=== PATIENT | female | born 1950 | race Caucasian/White ===

== ENCOUNTER 2018-07-17 15:30 | Inpatient (IN) | payer OTHER ==
[2018-07-17 17:11] LABS: Urine Appearance CLEAR; Urine Bilirubin NEGATIVE (NEG); Urine Blood NEGATIVE (NEG); Urine Color YELLOW; Urine Glucose NEGATIVE (NEG); Urine Protein NEGATIVE (NEG); Urine Urobilinogen 0.2 mg/dL (0.2-1.0)
[2018-07-17 17:24] LABS: Urine Microscopic Reflex ORDER UMIC
[2018-07-17 17:39] VITALS: BMI 45.6
[2018-07-17 17:51] LABS: Absolute Lymphocytes (CBC) 1.1 K/uL (0.7-4.9); Absolute Monocytes 0.9 K/uL (0.1-1.3); Absolute Neutrophil 7.9 K/uL (1.8-8.0); Basophils % 0.3 % (0-1.3); Eosinophils % 1.2 % (0-4.4); Hematocrit 39.4 % (36.0-45.0); MCH 30.6 pg (27.0-35.0); MPV 8.7 fL (7.6-11.3); Monocytes % 8.5 % (3.3-12.3); RBC Red Blood Cell Count 4.37 M/uL (3.86-4.86)
[2018-07-17 18:03] LABS: Albumin 3.5 g/dL (3.4-5.0); Bilirubin Total 0.4 mg/dL (0.2-1.0); Potassium 3.8 mmol/L (3.5-5.1); Protein, Total 7.3 g/dL (6.4-8.2)
[2018-07-17 19:18] LABS: Urine Bacteria 20-50 /HPF (<20); Urine Culture Reflex Order NOT NEEDED; Urine RBC <5 /HPF (NONE SEEN)
[2018-07-17] MEDS ORDERED: VANCOMYCIN/NS 1 gm 1 GM/250 ML BAG IV SCH (21:00)
[2018-07-18] MEDS: VANCOMYCIN 1.75 GM in NA CHLORIDE 0.9% 500 ML IVPB SCH (10:02)
[2018-07-18] MEDS: ENOXAPARIN 30 MG/0.3 ML SQ SCH (17:05)
[2018-07-18] MEDS: ATORVASTATIN 10 MG TAB PO SCH (21:00)
[2018-07-18 22:22] VITALS: O2SAT 98
--- NOTE | 2018-07-19 00:24 | HP ---
Date of Admission: 07/17/2018 Chief Complaint: Pain, redness, right leg. History Of Present Illness: A 67-year-old female was taken to urgent care for infection of the leg. She was given doxycycline and Bactrim. However, she returned to office because of her increased meir n and redness. She was found to have cellulitis with early abscess formation and vesiculation. The patient was admitted for IV vancomycin therapy as she was not responding to oral antibiotics. Past Medical History: The patient is known to have history of hypertension. Surgical History: Positive for gallbladder surgery, biopsy of breast, and history of dental surgery. Allergies: FLUCONAZOLE. Home Medicines: Please refer to the chart. Review of Systems: The patient denied any history of chest pain or shortness of breath. Physical Examination: General: Revealed a 67-year-old female in moderate pain. Vital Signs: Afebrile. HEENT: Negative. Neck: Supple. JVD negative. Chest: Clear. Heart: Regular. Abdomen: Pendulous, nontender. Extremities: There is a large area of redness of the right leg with vesicle and purulent drainage. Laboratory Data: CBC, white count normal. Assessment: 1.Cellulitis, not responding to oral doxycycline and Bactrim. 2.Hypertension. 3.History of gallbladder surgery and breast biopsies. Plan: The patient is started on vancomycin. She will be followed on a daily basis and response will be monitored. RAVINDER/NAYELI Voice ID: [id number]
[2018-07-19] MEDS: LOSARTAN POTASSIUM 50 MG TABLET PO SCH (08:22)
[2018-07-19] MEDS: DIPHENHYDRAMINE 25 MG TAB/CAP PO SCH (08:23)
[2018-07-19] MEDS: hydroCHLOROthiazide 25 MG TAB PO SCH (08:23)
[2018-07-19] MEDS: VANCOMYCIN 1.75 GM in NA CHLORIDE 0.9% 500 ML IVPB SCH (08:26)
[2018-07-19] MEDS ORDERED: HOME MED 1 EA UNK (Losartan/Hydrochlorothiazide [Losartan-Hctz 100-25 Mg Tab] 1 TAB) PO SCH (09:00)
[2018-07-19] MEDS: FAMOTIDINE 20 MG TAB PO SCH (09:51)
[2018-07-19] MEDS: ENOXAPARIN 30 MG/0.3 ML SQ SCH (16:29)
[2018-07-19] MEDS: ATORVASTATIN 10 MG TAB PO SCH (21:00)
[2018-07-20] MEDS: DIPHENHYDRAMINE 25 MG TAB/CAP PO SCH (08:34)
[2018-07-20] MEDS: hydroCHLOROthiazide 25 MG TAB PO SCH (08:34)
[2018-07-20] MEDS: LOSARTAN POTASSIUM 50 MG TABLET PO SCH (08:34)
[2018-07-20] MEDS: FAMOTIDINE 20 MG TAB PO SCH (08:35)
[2018-07-20] MEDS: VANCOMYCIN 1.75 GM in NA CHLORIDE 0.9% 500 ML IVPB SCH (08:36)
[2018-07-20 08:39] VITALS: BP 167/76
[2018-07-20 09:30] VITALS: TEMP 96.5
== END 2018-07-20 09:36 | disposition home or self-care (01) | DRG 603 ==
LOC: 2ND 16:09
PROVIDERS: ADMIT Internal Medicine; ATTEND Internal Medicine
DX: L03.115 Cellulitis of right lower limb (principal); L02.415 Cutaneous abscess of right lower limb; I10 Essential (primary) hypertension
CPT/HCPCS: 36415; 80053; 80202; 81003; 81015; 82565; 85025; 87040; 87070; 87077; 87086; 87088; 87186; 87205; J1650; J3370

== ENCOUNTER 2021-06-15 09:15 | Day surgery (SDC) | payer OTHER ==
[2021-06-15] MEDS ORDERED: CELECOXIB 100 MG CAPSULE ONE (10:07)
[2021-06-15] MEDS ORDERED: ACETAMINOPHEN 500 MG TAB ONE (10:07)
[2021-06-15] MEDS ORDERED: Ringers Lactate 1,000 ML IV ONE (10:07)
[2021-06-15] MEDS ORDERED: propofoL 200 MG/20 ML VIAL IV ONE ×2 (10:21→10:26)
[2021-06-15] MEDS ORDERED: dexAMETHasone 4 MG/ML VIAL ONE (10:21)
[2021-06-15] MEDS ORDERED: FENTANYL CITR 100 MCG/2 ML ONE ×2 (10:21→10:26)
[2021-06-15] MEDS ORDERED: ONDANSETRON 4 MG/2 ML VIAL ONE ×2 (10:21→11:22)
[2021-06-15] MEDS ORDERED: KETOROLAC 30 MG/ML INJ ONE (10:21)
[2021-06-15] MEDS ORDERED: MIDAZOLAM HCL 2 MG/2 ML INJ ONE ×2 (10:21→10:26)
[2021-06-15] MEDS ORDERED: LIDOCAINE 1% MPF 30 ML VIAL ONE (10:22)
[2021-06-15] MEDS ORDERED: LIDOCAINE 2% MPF 5 ML VIAL ONE (10:26)
[2021-06-15] MEDS ORDERED: LIDOCAINE 1% W/EPI 1:100,000 MDV 20 ML VIAL ONE (11:00)
[2021-06-15] MEDS ORDERED: ROCURONIUM 50 MG/5 ML VIAL IV ONE (11:22)
[2021-06-15] MEDS ORDERED: dexAMETHasone 10 MG/ML VIAL ONE (11:22)
[2021-06-15] MEDS ORDERED: MEPERIDINE HCL 25 MG/ML SYR IM PRN (11:50)
--- NOTE | 2021-06-15 11:53 | P.BOP ---
Preoperative diagnosis: Pelvic pain, Uterivaginal prolapse, thick endometrium Postoperative diagnosis: same, endometrial polyp Primary procedure: Op hysteroscopy Polypectomy D&C, exam under anesthesia Estimated blood loss: min Specimen: polyp and EMC Findings: polyp and thick endometrial tissue on posterior and fundal wall Anesthesia: General Complications: None Transferred to: Recovery Room Condition: Good
[2021-06-15 12:40] VITALS: BP 155/68; TEMP 96.8; O2SAT 96
--- NOTE | 2021-06-16 08:22 | OP ---
Date of Procedure: 06/15/2021 Surgeon: Snow Tellez MD Preoperative Diagnoses: Pelvic pain, uterovaginal prolapse, and thick endometrium. Postoperative Diagnoses: Pelvic pain, uterovaginal prolapse, thick endometrium, and endometrial poly p. Procedures Performed: Operative hysteroscopy, polypectomy, dilation and curettage, and exam under an esthesia (was difficult to examine her prolapse and her vaginal area preoperatively). Blood Loss: Minimal. Specimens: Polyp and endometrial curettings. Complications: No complications. Drains: No drains. Anesthesia: General with LMA. Specimens: Endometrial polyp and curettings. Findings: The polyp was present in the posterior wall. There was thickened endometrial tissue on th e posterior fundal wall. All this was incised with scissors and retrieved with the help of polyp for ceps. Her POP-Q was -1, 0, -1, 5, moderate, 8, 0, 0, and -4. Rectovaginal exam; there was significa nt and distal rectovaginal septum detachment from the perineal body. The perineal body was weak alee ng the genital hiatus much larger. Indications: The patient is a 70-year-old female, who presented with pelvic pain and prolapse. On t ransvaginal ultrasound, thickened endometrium was noted that was heterogeneous, suspicious for a poly p or mass. It was also difficult to evaluate her pelvic organ prolapse in the office as it failed to demonstrate her bulge that she was reporting, so the exam under anesthesia would be the most appropr iate for us to evaluate for the treatment for prolapse for this patient. She was consented for an ex am under anesthesia, hysteroscopy, polypectomy, D and C, and brought to the hospital. Description Of Procedure: After informed consent was re-verified in the preop area and her w as present as well. Questions and answers were done to their satisfaction. She was taken back to th e OR, placed in a supine fashion on the table. General anesthesia was given. She was placed in dors al lithotomy position. Pelvic exam was performed. POP-Q as above. After vulva, vagina, and perineu m were prepped, speculum was placed to expose the cervix. Anterior lip grasped with 2 Allis clamps. Diagnostic SlimLine hysteroscope was introduced through the cervical canal, and under direct visualiz ation, uterine cavity was entered. There was a polyp at least a centimeter large with some thickened endometrial tissue posteriorly. It was not easy to separate the polyp with the help of the tip of t he hysteroscope. So, the diagnostic hysteroscope was pulled up. Operative sheath was placed. Then, scissors were passed through this. After entering the uterine canal again, the base of the polyp was cut. Other endometrial tissue was also excised and freed up from the base and the fundus. Scope removed. This tissue was retrieved wi th the help of Nickolas forceps. After all this was retrieved optimally, then curettage was performed with a #1 curette. All specimens handed out for permanent pathology. Instruments were removed. Instrument, needle, and sponge counts were correct at the end of the case. The patient tolerated the procedure well. She was recovered from anesthesia in the OR and taken to the PACU in a stable condition. EBL was minimal. She has a 1-week followup with me. Findings were discussed with the patient when she was slightly mo re awake as well as her . KRISSY/NAYELI Voice ID: [id number] Report ID: [id number]
[2021-06-16] MEDS ORDERED: HOME MED 1 EA UNK (Valsartan [Valsartan] 320 MG Tablet) PO SCH (09:00)
[2021-06-16] MEDS ORDERED: MVI WITH MINERALS TAB PO SCH (09:00)
[2021-06-16] MEDS ORDERED: FAMOTIDINE 20 MG TAB PO SCH (09:00)
[2021-06-16] MEDS ORDERED: HOME MED 1 EA UNK (Valsartan/Hydrochlorothiazide [Valsartan-Hctz 320-25 Mg Tab] 1 EACH Tab PO SCH (09:00)
[2021-06-16] MEDS ORDERED: DIPHENHYDRAMINE 25 MG TAB/CAP PO SCH (09:00)
[2021-06-16] MEDS ORDERED: HOME MED 1 EA UNK (Simvastatin [Simvastatin] 20 MG Tablet) PO SCH (09:00)
== END 2021-06-15 13:20 | disposition home or self-care (01) ==
LOC: OR 09:15
PROVIDERS: ATTEND Obstetrics & Gynecology
PROC: 0UJD8ZZ Inspection of Uterus and Cervix, Via Natural or Artificial Opening Endoscopic (ICD-10-PCS; 2021-06-15)
PROC: 0UB97ZX Excision of Uterus, Via Natural or Artificial Opening, Diagnostic (ICD-10-PCS; principal; 2021-06-15 11:30)
PROC: 0UDB7ZX Extraction of Endometrium, Via Natural or Artificial Opening, Diagnostic (ICD-10-PCS; 2021-06-15 11:30)
DX: N84.0 Polyp of corpus uteri (principal); N81.2 Incomplete uterovaginal prolapse; N95.2 Postmenopausal atrophic vaginitis; R10.2 Pelvic and perineal pain; N81.84 Pelvic muscle wasting; I10 Essential (primary) hypertension; L29.2 Pruritus vulvae; Z20.822 Contact with and (suspected) exposure to COVID-19
CPT/HCPCS: 88305; 58558; U0002; J2704 ×2; J1100 ×2; J2250; J3010; J7120; J2405 ×2

== ENCOUNTER 2021-08-30 10:21 | Day surgery (SDC) | payer OTHER ==
[2021-08-26 09:57] LABS: Urine Appearance CLEAR (Clear); Urine Bilirubin NEGATIVE (Negative); Urine Blood NEGATIVE (Negative); Urine Color YELLOW (Yellow); Urine Glucose NEGATIVE (Negative)
[2021-08-26 09:58] LABS: Urine Microscopic Reflex NO UMIC; Urine Protein NEGATIVE (Negative); Urine Urobilinogen 0.2 mg/dL (0.2-1.0); Urine pH 7.5 (5.0-7.0)
[2021-08-26 10:06] LABS: Potassium 3.3 mmol/L (3.5-5.1)
[2021-08-26 10:10] LABS: Absolute Lymphocytes (CBC) 1.1 K/uL (0.7-4.9); Basophils % 0.4 % (0-1.3); Hematocrit 40.9 % (36.0-45.0); Lymphocytes % 15.8 % (15.3-44.8); MPV 8.6 fL (7.6-11.3); RBC Red Blood Cell Count 4.54 M/uL (3.86-4.86)
[2021-08-26 10:13] LABS: Protime INR 1.04
[2021-08-30] MEDS ORDERED: SCOPOLAMINE HYDROBROMIDE PATCH TD ONE ×2 (10:55→11:15)
[2021-08-30] MEDS ORDERED: Ringers Lactate 1,000 ML IV ONE ×3 (10:55→16:27)
[2021-08-30] MEDS ORDERED: ACETAMINOPHEN 500 MG TAB PO ONE (11:30)
[2021-08-30] MEDS ORDERED: CELECOXIB 100 MG CAPSULE PO ONE (11:30)
[2021-08-30] MEDS ORDERED: ACETAMINOPHEN 500 MG TAB ONE (11:32)
[2021-08-30] MEDS ORDERED: CELECOXIB 100 MG CAPSULE ONE (11:32)
[2021-08-30 11:34] LABS: Potassium 3.5 mmol/L (3.5-5.1)
[2021-08-30] MEDS ORDERED: ROCURONIUM 50 MG/5 ML VIAL IV ONE (11:47)
[2021-08-30] MEDS ORDERED: propofoL 200 MG/20 ML VIAL IV ONE (11:47)
[2021-08-30] MEDS ORDERED: LIDOCAINE 2% MPF 5 ML VIAL ONE (11:48)
[2021-08-30] MEDS ORDERED: KETOROLAC 30 MG/ML INJ ONE (11:49)
[2021-08-30] MEDS ORDERED: dexAMETHasone 4 MG/ML VIAL ONE (11:49)
[2021-08-30] MEDS ORDERED: FENTANYL CITR 250 MCG/5 ML ONE (11:49)
[2021-08-30] MEDS ORDERED: ONDANSETRON 4 MG/2 ML VIAL ONE (11:49)
[2021-08-30] MEDS ORDERED: CEFAZOLIN SODIUM 1 GM/VIAL ONE ×2 (12:43→13:11)
[2021-08-30] MEDS ORDERED: VASOPRESSIN 20 UNIT/ML VIAL ONE (12:44)
[2021-08-30] MEDS ORDERED: NA CHLORIDE 0.9% 100 ML IV ONE (12:44)
[2021-08-30] MEDS ORDERED: LIDOCAINE 1% W/EPI 1:100,000 MDV 20 ML VIAL ONE ×2 (12:44→13:28)
[2021-08-30] MEDS ORDERED: NS 0.9% VIAL 30 ML ONE (13:11)
[2021-08-30] MEDS ORDERED: NS 0.9% VIAL 10 ML ONE (13:37)
[2021-08-30] MEDS ORDERED: VECURONIUM 10 MG/VIAL IV ONE (13:37)
[2021-08-30] MEDS ORDERED: NA CHLORIDE 0.9% 1,000 ML ONE (13:49)
[2021-08-30] MEDS ORDERED: GLYCOPYRROLATE 0.2 MG/ML SYR ONE (15:36)
[2021-08-30] MEDS ORDERED: NEOSTIGMINE 1 MG/ML -5 ML ONE (15:36)
[2021-08-30] MEDS ORDERED: ONDANSETRON 4 MG/2 ML VIAL IV PRN (15:51)
[2021-08-30] MEDS ORDERED: ACETAMINOPHEN 500 MG TAB PO PRN (15:51)
[2021-08-30] MEDS ORDERED: MORPHINE 2 MG/ML SYR IV PRN (15:51)
[2021-08-30] MEDS ORDERED: PROMETHAZINE INJ 25 MG/ML AMP IV PRN (15:51)
--- NOTE | 2021-08-30 16:05 | P.BOP ---
Preoperative diagnosis: Stage 2 anterior apical posterior wall prolapse MARBIN Postoperative diagnosis: same Primary procedure: Rt Ant approach SSLF hysteropexy, A&P repairs, perineal body repair Secondary procedure: MUS (TVT-O) cystoscopy Anesthesiologist: Judi Avina Estimated blood loss: 150, UO 100 Specimen: none Findings: -2/0/0/5/thin/8/0/+1/-3,R>L PVD,mostly apical defect,SSD distal post wall Anesthesia: General Complications: None Drain(s): Urinary catheter Implants: TVT-O Fluids & blood products: 1500LR Transferred to: Recovery Room Condition: Good
[2021-08-30 16:37] VITALS: O2SAT 98
[2021-08-30 17:59] VITALS: BMI 46.3
[2021-08-30] MEDS: Ringers Lactate 1,000 ML IV SCH (18:30)
[2021-08-30] MEDS: IBUPROFEN 600 MG TAB PO PRN (19:21)
--- NOTE | 2021-08-31 03:22 | OP ---
Date of Procedure: 08/30/2021 Surgeon: Snow Tellez MD Music Video Producer: Judi Avina. Preoperative Diagnoses: Stage II anterior apical and posterior wall prolapse, stress urinary inconti nence. Postoperative Diagnoses: Stage II anterior apical and posterior wall prolapse, stress urinary incont inence. Procedures Performed: Right anterior approach vaginal sacrospinous ligament fixation, hysteropexy, a nterior repair, posterior repair which included a perineal body reconstruction through a separate inc ision and mid-urethral sling (TVT-O) cystoscopy. Anesthesia: General with LMA. Estimated Blood Loss: 150. Urine Output: 100. Specimens: None. Complications: No complications. Drains: Petty catheter. Implants: TVT-O. Fluids: In 1500 LR. Disposition: Transferred to the recovery room in stable condition. Specimens: No specimens. Findings: POP-Q -2, 0, 0, 5, thin, 8, 0, +1, and -3. There was a right more than left paravaginal d efect. The defect was mostly apical and once this was corrected, the anterior defect was mostly redu rell. Distal anterior wall needed a Lizet stitch which was placed. Then the posterior defect was a s ite-specific defect where the distal posterior wall was avulsed from the perineal body and the perine al body appeared to also be thin and , replaced by scar. So site-specific defect repair was done on the posterior wall using a PDS sutures after the perineal body was reconstructed with 2-0 Vicryl. Then, anterior approach sacrospinous was done with the help of Prolene sutures x2 using the Capio to the anterolateral wall of the cervix on the right. Sutures were placed and knots tied down without a suture bridge. Rectal exam was negative. Indications: The patient is a 70-year-old female, presented with symptomatic prolapse. Her ultrasou nd showed a lining of 1 cm, so she had hysteroscopy, endometrial sampling which was negative for any pathology, just a hint of an endometrial polyp which was not seen on hysteroscopy. No atypia or stephane gnancy was noted. There was no history of vaginal bleeding ever. The patient had vaginal discomfort and pressure, but no abdominal pain or bleeding. Denied any fecal incontinence, constipation, strai juan, or urgency. She had MARBIN rarely, urodynamic study was done and reviewed and her capacity was lo w at 200 and her PVR was 0. Maximal urethral closure pressure was 61 and Valsalva leak point pressur e was low as well. So, occult MARBIN was suspected and the patient was consented for mid-urethral sling . After counseling the patient for the treatment with pessary observation or with pelvic floor muscl e therapy or vaginal prolapse repair, the patient wanted to proceed with prolapse repair, did not wan t to have removal of her uterus unless there was a problem, and she wanted to proceed with a vaginal repair if possible as uterine preservation was planned. So she was tested and after all the preopera tive evaluation, brought to the OR. Procedure In Detail: After informed consent was verified, 3 g of Ancef were given. She was taken ba ck to the OR, placed in supine fashion on the operating table. General anesthesia was given. Arms w ere placed on the arm boards, lower extremities in Alex stirrups. The patient was placed in a dorsa l lithotomy position. Lower abdomen, vulva, vagina, perineum, and thighs were prepped with Betadine. Petty was placed to drain the bladder and retracted superiorly and clamped, then pelvic exam was perf ormed and POP-Q was as above. It was significant how there was not a true fascial defect in the ante rior wall excepting in the distal part of the anterior wall right under the bladder up to the bladder neck. So the bladder neck appeared to be more preserved than what was suspected preoperatively in t he office evaluation. So plan was to do an anterior approach sacrospinous fixation. The ischial spine on the right side wa s easily palpable and so since the paravaginal defect was also larger on the right side, this was the first procedure to be done. An Allis was placed right underneath the UVJ and another one on the cervix. Midline was well exposed , injected with dilute vasopressin, 50 cc in total was injected for the entire procedure. 40 units w ere mixed with normal saline in 80 cc, 50 cc of this was used. A scalpel was used to make a midline incision and the dissection carried superiorly and inferiorly al l the way to the UVJ and the cervix the bladder from the vaginal wall and the connective t issue. Once the bladder was dissected all the way to the paravaginal spaces, then the paravesical sp joselin was entered. Then, the pararectal space was entered. Ischial spine was palpated and the rectum was cleared off the coccygeus muscle and sacrospinous ligament was well exposed. Then once the disse ction was carried all the way to the UVJ and the entire anterior wall was exposed, did not see any ne ed to go on the opposite side or use a grasp. So used the Capio to place 2 sutures on the right sacr ospinous 2 cm away and then 1 cm away medially and posteriorly. Once this was done, rectal exam was performed, no evidence of any suture there. Changed gloves and then the sutures were placed after exposing the cervix on the cervix and then the vaginal epithelium suturing was started with 2-0 Vicryl at the level of the cervix and then after 2 b ites were taken and the sacrospinous sutures were tied down without a suture bridge. The rest of the anterior wall was closed in a continuous running locked fashion. Lizet stitches were placed x2 with 0 Vicryl at the bladder neck just proximal to the bladder neck. Mid urethral area was picked up with 2 Allis clamps, injected with dilute vasopressin. Incision was made 1 cm in the mid urethral area. Dissection carried to the ipsilateral obturator space after the membrane was perforated, hugging the inferior pubic ramus. Wing guides were placed, spikes were pass ed and came in medial to the groin fold at the level of the external meatus, was slightly above prett y much close to the clitoris on the horizontal plane. Then the plastic dilators were retrieved. She aths were removed. After mesh was tensioned in the midline appropriately using Metzenbaum scissors, leaving it loosened up. After the plastic sheaths were pulled out, mesh was trimmed and flushed with the skin and skin was pu lled up to avoid dimpling. Then, the mesh was irrigated with antibiotic solution. This was closed with the help of 3-0 Vicryl in a continuous running fashion and then Dermabond on the skin. Petty was removed, cystoscopy was performed with 30-degree lens, normal saline, 17-Nepali sheath. Benja th ureteric orifices were well visualized and strong jets of urine were seen and no evidence of any t rauma in the bladder or foreign body. The bladder was drained, Petty was replaced, clamped, and supe riorly retracted. Posteriorly, the hymenal remnants were picked up with 2 Allis clamps and the distal defect was palpat ed with the rectovaginal exam and gloves were changed. There was a defect where the posterior connec tive tissue was detached from the perineal body. There was a dimple where there was no connective ti ssue between the vaginal epithelium and the rectal wall. So likely this was a defect from her delive ry. So went ahead and injected the distal one-third of the vaginal wall with dilute vasopressin. A amaris-shaped incision was made on the vaginal epithelium, sub epithelium. This was excised complet violeta without any deeper rectal trauma. Then the connective tissue was away from the vaginal epithelial flaps both superiorly, laterally, and inferiorly. The perineal body was well exposed. T hen remnant of the perineal body on the inside was well displayed and dissected and then the posterio r wall was dissected to top. No evidence of any enterocele was seen. So as there was a site-specifi c defect noted in the inferior part detaching the rectovaginal septum from the perineal body and brittani edin body reconstruction was performed with the help of 2-0 Vicryl sutures x2. Once these were tied together. Then, the 2-0 PDS was used to start the suture on the top attached back to the right dista l lateral wall as well as the perineal body and then brought back on the left side all the way to the top. Once this was tied down, then slight trimming of the posterior wall was done to take other rem nant tissue, which just maybe a couple centimeters. Then, closure with a continuous running 2-0 Vicr yl to the level of the hymen. Then, on the vestibule, a triangular skin incision was made here after injecting dilute vasopressin. Flaps were dissected. The distal deep transverse perineum were all exposed through the scar. Then, these tissues were brought with the help of 3 interrupted 2-0 Vicryl sutures. Once this was done, t here was excellent reconstruction and decrease in the genital hiatus size. Without narrowing, there was at least three and half finger space for patency of the vaginal introitus, which was optimal for vaginal penetration and the depth was at least 8 cm. The anterior wall, however, was deviating posteriorly and to the right side from the sacrospinous fix ation. Then, sutures were placed with 3-0 Vicryl in a continuous running subcutaneous and subcuticul ar fashion to close the defect here. Rectal exam was done, was negative. No evidence of any trauma and for foreign body. Bladder was drained. Instrument, needle, and sponge counts were done and were correct at the end of the case. The patient tolerated the procedure well. She was recovered from a nesthesia and taken to PACU in stable condition. She will be kept outpatient in a bed till tomorrow morning voiding trials and then will be discharged home. KRISSY/NAYELI Voice ID: [id number] Report ID: [id number]
[2021-08-31] MEDS: IBUPROFEN 600 MG TAB PO PRN ×2 (05:46→10:37)
[2021-08-31] MEDS: Ringers Lactate 1,000 ML IV SCH (05:47)
[2021-08-31 06:29] LABS: Basophils % 0.3 % (0-1.3); Hematocrit 34.6 % (36.0-45.0); Lymphocytes % 8.4 % (15.3-44.8); MPV 8.5 fL (7.6-11.3); RBC Red Blood Cell Count 3.83 M/uL (3.86-4.86)
[2021-08-31 07:31] VITALS: BP 145/69; TEMP 97.2
[2021-08-31] MEDS ORDERED: HOME MED 1 EA UNK (Simvastatin [Simvastatin] 20 MG Tablet) PO SCH (09:00)
[2021-08-31] MEDS ORDERED: ATORVASTATIN 10 MG TAB PO SCH (09:00)
[2021-08-31] MEDS ORDERED: MULTIVIT W/ MINERAL TAB PO SCH (09:00)
[2021-08-31] MEDS ORDERED: VALSARTAN 160 MG TAB PO SCH (09:00)
[2021-08-31] MEDS ORDERED: FAMOTIDINE 20 MG TAB PO SCH (09:00)
[2021-08-31] MEDS ORDERED: DIPHENHYDRAMINE 25 MG TAB/CAP PO SCH (09:00)
[2021-08-31] MEDS ORDERED: HOME MED 1 EA UNK (Valsartan/Hydrochlorothiazide [Valsartan-Hctz 320-25 Mg Tab] 1 EACH Tab PO SCH (09:00)
[2021-08-31] MEDS ORDERED: hydroCHLOROthiazide 25 MG TAB PO SCH (09:00)
== END 2021-08-31 12:00 | disposition home or self-care (01) ==
LOC: OR 10:21 → 2ND-WC 15:51 → OR 08-31 12:00
PROVIDERS: ATTEND Obstetrics & Gynecology
PROC: 0USG7ZZ Reposition Vagina, Via Natural or Artificial Opening (ICD-10-PCS; 2021-08-30)
PROC: 0JQC0ZZ Repair Pelvic Region Subcutaneous Tissue and Fascia, Open Approach (ICD-10-PCS; 2021-08-30)
PROC: 0HQ9XZZ Repair Perineum Skin, External Approach (ICD-10-PCS; 2021-08-30)
PROC: 0TSD0ZZ Reposition Urethra, Open Approach (ICD-10-PCS; principal; 2021-08-30 12:00)
DX: N81.2 Incomplete uterovaginal prolapse (principal); N39.3 Stress incontinence (female) (male); N95.2 Postmenopausal atrophic vaginitis; N32.81 Overactive bladder; Z20.822 Contact with and (suspected) exposure to COVID-19
CPT/HCPCS: 85025 ×2; 80048 ×2; 36415 ×2; 86900; 86850; 85610; 86901; 85730; 81003; 57288; 57282; 57250; U0003; J2704; J1100; J3010; J2710; J7120 ×4; J7030; J2405; J0690 ×2